=== PATIENT | female | born 1990 | race African-American/Black ===

== ENCOUNTER 2019-11-14 13:08 | Emergency (ER) | payer OTHER, SELFPAY ==
[2019-11-14 13:12] VITALS: BP 141/82; PULSE 86; RESP 18; TEMP 36.1; O2SAT 100
--- NOTE | 2019-11-14 15:08 | ED.FEMALEGU ---
HPI - Female Genitourinary General Chief complaint: [employer] Stated complaint: wipes stuck in vagina Time Seen by Provider: 11/14/19 15:04 History of Present Illness HPI Narrative: Patient presents with some wipes in her vagina. She wanted to stop the blood flow. She has no pain. She is on her menses. She does not take any medication. She had a lipoma removed from her back. She smokes marijuana. She works as a PERSONNEL RECORDS CLERK. She has not been sick recently. Related Data Allergies Allergy/AdvReac Type Severity Reaction Status Date / Time No Known Allergies Allergy Verified 11/14/19 13:39 Review of Systems Review of Systems: Narrative: CONSTITUTIONAL: Denies fever, chills, or sweats. EYES: Denies visual changes, redness, or discharge. ENT: Denies rhinorrhea, congestion, sore throat, or otalgia. CARDIOVASCULAR: Denies chest pain, palpitations, or edema. RESPIRATORY: Denies cough or dyspnea. GASTROINTESTINAL: Denies abdominal pain, nausea, vomiting, or diarrhea. GENITOURINARY: Denies dysuria or hematuria. SKIN: Denies rash or itching. MUSCULOSKELETAL: Denies back pain, joint pain, or myalgia. NEUROLOGIC: Denies headache, numbness, or weakness. PSYCHIATRIC: Denies anxiety or depression. [facility] Past Medical History Medical History Lipoma Social History Social History (Updated 11/14/19 @ 15:11 by Yany Pennington MD) Smoking status: Never smoker Alcohol intake: never Substance use type: marijuana Gender identity (if verbalized by the patient): Male Exam Narrative: Exam Narrative: GENERAL: Well-appearing, well-nourished, and in no acute distress. HEAD: Normocephalic, atraumatic. EYES: PERRLA and EOMI. ENT: Nares clear, no rhinorrhea or epistaxis. Mucous membranes moist. Facial piercings. NECK: Supple. CHEST: Clear to auscultation. No respiratory distress. HEART: Regular rate and rhythm. No murmur heard. Normal peripheral pulses. ABDOMEN: Soft, nontender, nondistended, normal active bowel sounds. EXTREMITIES: Normal range of motion. No edema. SKIN: Warm, dry, no rash. NEURO: No focal deficits. Alert and oriented x3. PSYCH: Normal mood and affect. : General: Yes bladder normal to palpation External Female Exam: normal external appearance Speculum Exam - Vagina: normal appearance of the vagina, no foreign bodies and vaginal bleeding Speculum Exam - Cervix: Cervical os closed Bimanual exam- vagina & uterus: no cervical motion tenderness Bimanual Exam- Adnexa, other: no masses and no tenderness Other: There was no wipes in the vagina. Only a small amount of blood. She had no tenderness on exam. Course Vital Signs Vital signs: Vital Signs Temperature 97.0 F L 11/14/19 13:12 Pulse Rate 86 11/14/19 13:12 Respiratory Rate 18 11/14/19 13:12 Blood Pressure 141/82 H 11/14/19 13:12 Pulse Oximetry 100 11/14/19 13:12 Temperature 97.0 F L 11/14/19 13:12 Pulse Rate 86 11/14/19 13:12 Respiratory Rate 18 11/14/19 13:12 Blood Pressure 141/82 H 11/14/19 13:12 Pulse Oximetry 100 11/14/19 13:12 MDM - Female Genitourinary MDM Narrative Medical decision making narrative: The patient reassured that there were still wipes in there but there were not. She is relieved. Discharge Plan Discharge Clinical Impression: Vaginal foreign object Qualifiers: Encounter type: initial encounter Qualified Code(s): T19.2XXA - Foreign body in vulva and vagina, initial encounter Patient Disposition: Home, Self-Care Condition: Stable Instructions: Safe Sex Practices (ED), Vaginal Foreign Body (ED) Follow-up/Referrals: Brielle Larios MD [Physician] - (Call for appointment) PHYSICIAN,[employer] MA[employer] [Primary Care Provider] - Time of Disposition: 15:13
--- NOTE | 2019-11-14 15:18 | PC.NURSE ---
RN went to give pt d/c instructions but she had already left the department.
== END 2019-11-14 15:19 | disposition home or self-care (01) ==
PROVIDERS: Emergency Provider Emergency Medicine
DX: T19.2XXA Foreign body in vulva and vagina, initial encounter (principal)
CPT/HCPCS: 99281